=== PATIENT | male | born 1970 | race Caucasian/White ===

== ENCOUNTER 2023-05-05 08:44 | Emergency (ER) | payer OTHER, SELFPAY ==
[2023-05-05] VITALS (14 sets, daily range): BP systolic 101–129; BP diastolic 58–80; PULSE 74–103; RESP 13–20; TEMP 37.2; O2SAT 96–100; BMI 27.7
--- NOTE | 2023-05-05 09:26 | ED.WEAKNESS ---
HPI - Weakness General Chief complaint: Weakness Stated complaint: low energy, dehydration per pt Time Seen by Provider: 05/05/23 09:19 Source: patient Mode of arrival: Ambulatory History of Present Illness HPI Narrative: Patient states he was in his usual state of health until 2 weeks ago. He was on a golf trip to [place]. While there he tested positive for influenza A. He had fever and chills. Since then he has had a dry cough. In addition he feels he does not have the same vigor and energy as he usually does. His urine output has changed. Does not feel like a very forceful stream but denies any dysuria. He has been able to eat and drink. Has dyspnea but no chest pain. No abdominal pain. No altered mental status. Denies any history of heart attack strokes or diabetes. No thyroid disease. Denies any prostate problems. Review of Systems Review of Systems Narrative: GENERAL: Positive chills, fatigue, malaise, fever, negative sweats. HEENT: negative sinus pain, ear pain, sore throat RESPIRATORY: Positive dyspnea, positive cough CARDIOVASCULAR: negative chest pain, palpitations GASTROINTESTINAL: negative nausea, vomiting, abdominal pain : negative dysuria, frequency, hematuria MUSCULOSKELETAL: negative muscle or bony pain SKIN: negative rash, skin lesions NEUROLOGIC: negative weakness, numbness ROS Unobtainable: All systems reviewed & are unremarkable except as noted in HPI and below Patient History alcohol intake frequency: other Substance Use Type: does not use Exam Narrative Exam Narrative: GENERAL: in no distress, not toxic not dyspneic HEAD: Normocephalic. EYES: Pupils equal round ENT: Mucous membranes moist. NECK: Trachea midline. CARDIOVASCULAR: Regular rate and rhythm RESPIRATORY: Clear to auscultation. Breath sounds equal bilaterally. No wheezes, rales, or rhonchi. Speaking full sentences GASTROINTESTINAL: Abdomen soft, non-tender EXTREMITIES: No gross deformities. BACK: No flank tenderness. NEURO: AOx4. SKIN: Warm and dry PSYCH: Not anxious, is cooperative Initial Vital Signs Initial Vital Signs: Vital Signs Temperature 98.9 F 05/05/23 09:05 Pulse Rate 103 H 05/05/23 09:05 Respiratory Rate 18 05/05/23 09:05 Blood Pressure 116/73 05/05/23 09:05 Pulse Oximetry 99 05/05/23 09:05 Oxygen Delivery Method Room Air 05/05/23 09:05 Course Orders Ordered: Discontinued Medications Sodium Chloride (Normal Saline 0.9%) 1,000 mls @ 1,000 mls/hr IV BOLUS ONE Stop: 05/05/23 10:23 Last Infusion: 05/05/23 12:20 Dose: Infused Documented By: Admin: 05/05/23 09:45 Dose: 1,000 mls/hr Documented By: CARRI Vital Signs Vital signs: Vital Signs - 8 hr 05/05/23 09:05 05/05/23 09:30 05/05/23 10:07 Temperature 98.9 F Pulse Rate 103 H 103 H 77 Respiratory Rate 18 18 20 Blood Pressure 116/73 120/66 Pulse Oximetry 99 99 99 Oxygen Delivery Method Room Air Room Air 05/05/23 10:08 05/05/23 10:09 05/05/23 10:09 Temperature Pulse Rate 100 H 77 Respiratory Rate 18 16 Blood Pressure 122/58 L 110/60 Pulse Oximetry 99 99 Oxygen Delivery Method Room Air 05/05/23 10:15 05/05/23 10:30 05/05/23 10:30 Temperature Pulse Rate 77 80 Respiratory Rate 15 15 Blood Pressure 114/58 L Pulse Oximetry 99 98 Oxygen Delivery Method 05/05/23 10:45 05/05/23 11:00 05/05/23 11:00 Temperature Pulse Rate 74 74 Respiratory Rate 15 14 Blood Pressure 101/59 L Pulse Oximetry 99 99 Oxygen Delivery Method 05/05/23 11:15 05/05/23 11:30 05/05/23 11:30 Temperature Pulse Rate 76 81 Respiratory Rate 17 13 Blood Pressure 129/79 Pulse Oximetry 100 97 Oxygen Delivery Method 05/05/23 11:51 05/05/23 11:52 05/05/23 11:52 Temperature Pulse Rate 83 77 Respiratory Rate 19 Blood Pressure 113/80 Pulse Oximetry 100 96 Oxygen Delivery Method 05/05/23 12:00 05/05/23 12:00 Temperature Pulse Rate 77 Respiratory Rate 14 Blood Pressure 110/68 Pulse Oximetry 100 Oxygen Delivery Method MDM - Weakness Lab Data 05/05/23 09:56 05/05/23 09:56 Labs: Lab Results 05/05/23 05/05/23 05/05/23 Range/Units 09:15 09:56 09:56 WBC 9.1 (4.5-11.0) X10^3/uL RBC 4.67 (4.5-5.9) X10^6/uL Hgb 14.3 (13.5-17.5) g/dL Hct 41.6 (41-53) % MCV 89.1 (80-100) fL MCH 30.6 (26-34) PG MCHC 34.3 (30-36) % RDW 12.4 (11.6-14.8) % Plt Count 704 H (150-400) X10^3/uL Neut % (Auto) 73.9 (50-75) % Lymph % (Auto) 13.5 L (25-40) % [place] % (Auto) 10.4 (3-14) % Eos % (Auto) 1.2 L (2-4) % Baso % (Auto) 1.0 (0-2) % Neut # (Auto) 6800 (6949-7229) /uL Lymph # (Auto) 1200 (4733-6478) /uL [place] # (Auto) 1000 H (0-900) /uL Eos # (Auto) 100 (0-450) /uL Baso # (Auto) 100 (0-100) /uL Sodium 135 L (137-145) mmol/L Potassium 4.8 (3.4-5.1) mmol/L Chloride 105 (98-107) mmol/L Carbon Dioxide 26 (22-32) mmol/L BUN 19 (9-20) mg/dL Creatinine 0.82 (0.66-1.25) mg/dL Estimated GFR > 60 (>60) mL/min BUN/Creatinine Ratio 23.2 H (6-22) Glucose 102 H (70-100) mg/dL Calcium 9.4 (8.4-10.2) mg/dL Magnesium 2.6 H (1.6-2.3) mg/dL Total Bilirubin 0.6 (0.2-1.3) mg/dL AST 126 H (17-59) IU/L ALT 200 H (<50) IU/L Alkaline Phosphatase 130 H (38-126) U/L Total Creatine Kinase 34 L 33 L (55-170) U/L Troponin I < 0.012 (0.01-0.034) ng/mL Total Protein 7.7 (6.3-8.2) g/dL Albumin 4.3 (3.5-5.0) g/dL Globulin 3.4 (1.7-4.1) g/dL Albumin/Globulin Ratio 1.3 (1.0-2.8) TSH 0.911 (0.47-4.68) uIU/mL Urine Color Yellow Urine Appearance Clear Urine pH 6.5 (4.5-8.0) Ur Specific Parachute 1.010 (1.000-1.035) Urine Protein Negative (Negative) Urine Glucose (UA) Negative (Negative) g/dL Urine Ketones Negative (NEGATIVE) Urine Occult Blood Negative (Negative) Urine Nitrate Negative (Negative) Urine Bilirubin Negative (NEGATIVE) Urine Urobilinogen 0.2 (0.2) E.U./dL Ur Leukocyte Esterase Negative (NEGATIVE) Urine RBC None seen (0-5/HPF) Urine WBC None seen (0-5/HPF) Ur Squamous Epith Cells None seen (0-5/HPF) Urine Bacteria None seen (None) Ur Culture Indicated? Cult not indicated Vol Urine Centrifuged 10ml (spun) Chlamy pneumoniae PCR Not detected (Not Detect) Adenovirus (PCR) Not detected (Not Detect) B.parapertussis DNA PCR Not detected (Not Detecte) Coronavirus OC43 (PCR) Not detected (Not Detect) Coronavirus HKU1 (PCR) Not detected (Not Detect) Coronavirus 229E (PCR) Not detected (Not Detect) SARS-CoV-2 (PCR) Not detected (Not Detecte) Coronavirus NL63 (PCR) Not detected (Not Detect) Human Metapneumovir PCR Not detected (Not Detect) Influ A (H1N1 Seas) PCR Detected H (Not Detect) Influenza Type B (PCR) Not detected (Not Detect) M. pneumoniae (PCR) Not detected (Not Detect) Parainfluenza 1 (PCR) Not detected (Not Detect) Parainfluenza 2 (PCR) Not detected (Not Detect) Parainfluenza 3 (PCR) Not detected (Not Detect) Parainfluenza 4 (PCR) Not detected (Not Detect) RSV (PCR) Not detected (Not Detect) Entero/Rhino (PCR) Not detected (Not Detect) Imaging Data CT scan - chest: Radiologist Impression: [address] [address] [address] Scan Report Signed Patient: Christopher Retana MR#: [id number] : 1970 Acct:[id number] Age/Sex: 52 / M Date of Service: 05/05/23 Loc: ED Accession Number: [id number] Procedure: CT angio chest PE protocol Ordering Provider: Tatum Beckett MD PROCEDURE: CT ANGIO CHEST PE PROTOCOL INDICATIONS: Dyspnea TECHNIQUE: After the administration of intravenous contrast, 2 mm thick sections acquired from the pulmonary apices to the posterior costophrenic angles. 3-dimensional maximum intensity projection (MIP) coronal and sagittal reformats were then acquired through the thorax. For radiation dose reduction, the following was used: automated exposure control, adjustment of mA and/or kV according to patient size. COMPARISON: None. FINDINGS: Image quality: Diagnostic. Pulmonary arteries: Pulmonary arteries are normal in size, and demonstrate no intraluminal filling defects to suggest central pulmonary embolism. Lower Neck: No enlarged lymph nodes. Thyroid: No thyroid nodules which require sonographic follow up, per consensus guidelines. Axillae: No enlarged lymph nodes. Chest Wall: Unremarkable. Bones: Unremarkable. Lungs and Pleura: No pneumothorax or pleural effusions. Mild bilateral lower lobe ground-glass density. Heart: Heart size is normal. No pericardial effusion. Thoracic Vessels: No aortic aneurysm. Mediastinum and Yady: No enlarged lymph nodes. Esophagus: No wall thickening. No hiatal hernia. Upper Abdomen: Visualized upper abdomen solid organs and bowel loops appear normal. IMPRESSION: 1. No pulmonary embolus. 2. Mild bilateral lower lobe pneumonia. Dictated by: Jesús Bingham M.D. on 05/05/2023 at 11:41 Approved by: Jesús Bingham M.D. on 05/05/2023 at 11:50 CT scan - abdomen/pelvis: Radiologist Impression: [place] [address] CT Scan Report Signed Patient: Christopher Retana MR#: [id number] : 1970 Acct:[id number] Age/Sex: 52 / M Date of Service: 05/05/23 Loc: ED Accession Number: [id number] Procedure: CT abdomen pelvis w con Ordering Provider: Tatum Beckett MD PROCEDURE: CT ABDOMEN PELVIS W CON INDICATIONS: IV contrast only/abdominal pain TECHNIQUE: After the administration of intravenous contrast, axial sections acquired from the lung bases to the pubic symphysis. Coronal and sagittal reformats were performed. For radiation dose reduction, the following was used: automated exposure control, adjustment of mA and/or kV according to patient size. COMPARISON: None. FINDINGS: Image quality: Diagnostic. Lower Chest: No significant findings. ABDOMEN: Liver: No solid mass. Gallbladder: No radiopaque gallstones or wall thickening. Biliary ducts: No biliary dilation. Pancreas: No ductal dilation. Spleen: Size is within normal limits. Adrenal Glands: No adrenal nodules. Kidneys and Ureters: No hydronephrosis. No solid mass. No complex renal cystic lesion which requires follow up. Stomach and Bowel: Normal colonic caliber, without significant wall thickening. Appendix not seen. No evidence of appendicitis. Peritoneum: No abnormal intraperitoneal fluid. No free air. Ventral Wall: No significant ventral hernia. Abdominal Nodes: No retroperitoneal or mesenteric adenopathy by size criteria. Vessels: Aorta and inferior vena cava are normal in size. PELVIS: Pelvic Organs: Unremarkable. Bladder: No bladder wall thickening, accounting for underdistention. Pelvic Nodes: No enlarged lymph nodes. Miscellaneous: Fat containing right inguinal hernia. Bones: No aggressive osseous abnormality. IMPRESSION: 1. No acute process. 2. Appendix not seen. No evidence of appendicitis. Dictated by: Jesús Bingham M.D. on 05/05/2023 at 11:52 Approved by: Jesús Bingham M.D. on 05/05/2023 at 11:54 Echocardiogram: Radiologist Impression: [address] [address] Echocardiography Report Signed Patient: Christopher Retana MR#: [id number] : 1970 Acct:[id number] Age/Sex: 52 / M Date of Service: 05/05/23 Loc: ED Accession Number: [id number] Procedure: EC echo doppler complete Ordering Provider: Tatum Beckett MD [place] +---------+ [facility] +---------+ : : [address] [place] [address] : : : : [place], [place] : : : : [id number] : : : : Phone: [phone]+ Echocardiogram Report + + :Name: CHRISTOPHER RETANA Study Date: 05/05/2023 Height: 73 in : :[facility] ReadingLocation: Weight: 210 lb : : Gender: Male BSA: 2.2 m2 : :: 1970 Age: 52 yrs BP: 114/58 mmHg: :Reason For Study: DYSPNEA : :Ordering Physician: SUJIT, : :TATUM Performed By: Amelia Muñoz : :Referring: TATUM BECKETT : + + Interpretation Summary The ejection fraction is estimated to be 60-65%. Diastolic parameters suggest probable normal left ventricular diastolic function and normal filling pressures. The right ventricle is normal in size and function. Pulmonary artery pressures cannot be estimated because of the lack of a measurable TR jet velocity but the IVC suggests a CVP of around 3 mmHg. Procedure: A two-dimensional transthoracic echocardiogram with color flow and Doppler was performed. The study quality was technically adequate. There is no prior echocardiogram noted for this patient. The patient was in sinus rhythm with heart rates between 69-72 bpm during the exam. Left Ventricle: The left ventricle is normal in size and wall thickness. The ejection fraction is estimated to be 60-65%. Diastolic parameters suggest probable normal left ventricular diastolic function and normal filling pressures. Right Ventricle: The right ventricle is normal in size and function. Atria: The left atrial size is normal. Right atrial size is normal. There is no Doppler evidence for an interatrial shunt. Mitral Valve: The mitral valve is normal. There is trace mitral regurgitation. Aortic Valve: The aortic valve is trileaflet. The aortic valve opens well. There is no aortic valve stenosis. No aortic regurgitation is present. Tricuspid Valve: The tricuspid valve is normal in structure and function. There is a trace or physiologic amount of tricuspid regurgitation. Pulmonary artery pressures cannot be estimated because of the lack of a measurable TR jet velocity but the IVC suggests a CVP of around 3 mmHg. Pulmonic Valve: The pulmonic valve leaflets are thin and pliable; valve motion is normal. There is no pulmonic valvular regurgitation. Great Vessels: The aortic root is normal size. The dimensions of the ascending aorta are normal. The IVC is of normal diameter and collapses greater than 50% with a sniff. This suggests a low right atrial pressure of 3 mm Hg. Pericardium/ Pleura There is no pericardial effusion. There is no pleural effusion. MMode/2D Measurements & Calculations LVIDd: 5.1 cm LVOT diam: 2.0 cm LVIDs: 3.6 cm Ao root diam: 3.0 cm FS: 30.0 % asc Aorta Diam: 3.0 cm EPSS: 0.51 cm Ao Arch Diam (Prox Trans): 2.7 cm IVSd: 0.77 cm LVPWd: 0.67 cm LV gomes. diameter/BSA (cm/m^2): 2.3 LV sys. diameter/BSA (cm/m^2): 1.6 LA A2 area: 17.2 cm2 RA long axis: 4.6 cm LA A4 area: 14.2 cm2 RA area: 12.9 cm2 LA length (vol): 4.5 cm RA vol: 30.3 ml LA vol: 46.0 ml RA : 13.8 ml/m2 LA vol index: 20.9 ml/m2 IVC diam: 1.8 cm RVD1 (basal): 4.0 cm TAPSE: 1.7 cm Doppler Measurements & Calculations Ao V2 max: 149.6 cm/sec LVOT Max Chidi: 85.7 cm/sec Ao V2 mean: 111.6 cm/sec LV V1 max P.9 mmHg Ao max P.0 mmHg LV V1 VTI: 17.4 cm Ao mean P.3 mmHg SARA(I,D): 1.8 cm2 Ao V2 VTI: 31.0 cm SARA(V,D): 1.8 cm2 sev ratio: 0.56 SARA indexed to BSA (cm^2/m^2): 0.80 MV E max chidi: 73.9 cm/sec TR max chidi: 211.1 cm/sec MV A max chidi: 44.3 cm/sec TR max P.8 mmHg MV E/A: 1.7 PA V2 max: 92.4 cm/sec Med Peak E' Chidi: 10.3 cm/sec PA V2 mean: 62.3 cm/sec E/E' med: 7.2 PA mean P.8 mmHg Lat Peak E' Chidi: 13.6 cm/sec PA pr(Accel): 24.2 mmHg E/E' lat: 5.4 E/e' average: 6.3 MV dec time: 0.17 sec SV(LVOT): 54.5 ml Reading Physician:11:[address] [facility] Narrative Medical decision making narrative: Patient states he was in his usual state of health until 2 weeks ago. He was on a golf trip to [place]. While there he tested positive for influenza A. He had fever and chills. Since then he has had a dry cough. In addition he feels he does not have the same vigor and energy as he usually does. His urine output has changed. Does not feel like a very forceful stream but denies any dysuria. He has been able to eat and drink. Has dyspnea but no chest pain. No abdominal pain. No altered mental status. Denies any history of heart attack strokes or diabetes. No thyroid disease. Denies any prostate problems. After history and exam echocardiogram CBC CMP EKG troponin urinalysis TSH magnesium, CT imaging pending results, normal saline MDM CC: Weakness Complicating co-morbidities: Recent influenza Data collected from: Patient Medical records reviewed: No recent visit here for this complaint Differential considered: Includes but not limited to viral syndrome sepsis hypothyroidism endocarditis pulmonary embolism pneumonia UTI Exam documented above, pertinent findings include: No abdominal pain, no respiratory distress Lab Test results independently reviewed as above. Pertinent findings: WBC 9.1 hemoglobin 14.3 sodium 135 potassium 4.8 BUN 19 creatinine 0.82 GFR greater than 60 AST 126 ALT 200 troponin less than 0.012 urinalysis negative leukocyte negative nitrate negative ketones Respiratory panel positive influenza a Independently reviewed EKG normal sinus rhythm normal EKG rate [address] elevation or depression Imaging studies independently reviewed: CT chest abdomen pelvis, no pulmonary embolism. There is bibasilar possible pneumonia. No acute finding in the abdomen. Echocardiogram no pleural effusion. No heart valve vegetations Consultations: None indicated this time Treatments: Normal saline Re-evaluations: 12:15 p.m.. Updated patient results. Patient not requiring supplemental oxygen. He states and does show paperwork from 2 visits to the clinic, Zithromax March, Augmentin started yesterday. Return precautions reviewed with him. Not toxic. He desires discharge home Discussion: Appropriate for discharge home. Patient is already antibiotics. Patient was given Zithromax 5 day pack March. He just saw a clinic again yesterday and started Augmentin. Exam and laboratory studies imaging studies otherwise reassuring. Return precautions reviewed with patient. He desires discharge home. Urinary complaints nonspecific. However urology referral has been provided. Diagnosis: Pneumonia Discharge Plan Departure Patient Disposition: Home Clinical Impression: Pneumonia Qualifiers: Pneumonia type: due to unspecified organism Laterality: bilateral Lung location: lower lobe of lung Qualified Code(s): J18.9 - Pneumonia, unspecified organism Instructions: DI for Atypical Pneumonia Activity Restrictions/Additional Instructions: Please see your family doctor within a week for re-evaluation. Call provided primary care referral phone number to establish family doctor. Call [phone]. Please do continue your Augmentin antibiotics to treat for your pneumonia. Keep well hydrated. Your laboratory studies imaging and echocardiogram and EKG are otherwise reassuring today. Please do get plenty of rest. Return if worse if any questions or concerns. No new prescriptions are indicated. Please call provided urology office regarding your urinary changes. Referrals: Yamel Mi ARNP [Primary Care Provider] - Sourav Loving MD [Physician] - Stand Alone Forms: Patient Portal/API
--- NOTE | 2023-05-05 09:31 | DI.ECHO.S_ITS ---
[facility]---------+ [facility] +---------+ : : [address] : : : : [id number] : : : : Phone: [phone] : : [phone]+ Echocardiogram Report + + :Name: REGGIE RETANA Study Date: 05/05/2023 Height: 73 in : :[facility] ReadingLocation: Weight: 210 lb : : Gender: Male BSA: 2.2 m2 : :: 1970 Age: 52 yrs BP: 114/58 mmHg: :Reason For Study: DYSPNEA : :Ordering Physician: SUJIT, : :TATUM Performed By: Amelia Muñoz : :Referring: TATUM BECKETT : + + Interpretation Summary The ejection fraction is estimated to be 60-65%. Diastolic parameters suggest probable normal left ventricular diastolic function and normal filling pressures. The right ventricle is normal in size and function. Pulmonary artery pressures cannot be estimated because of the lack of a measurable TR jet velocity but the IVC suggests a CVP of around 3 mmHg. Procedure: A two-dimensional transthoracic echocardiogram with color flow and Doppler was performed. The study quality was technically adequate. There is no prior echocardiogram noted for this patient. The patient was in sinus rhythm with heart rates between 69-72 bpm during the exam. Left Ventricle: The left ventricle is normal in size and wall thickness. The ejection fraction is estimated to be 60-65%. Diastolic parameters suggest probable normal left ventricular diastolic function and normal filling pressures. Right Ventricle: The right ventricle is normal in size and function. Atria: The left atrial size is normal. Right atrial size is normal. There is no Doppler evidence for an interatrial shunt. Mitral Valve: The mitral valve is normal. There is trace mitral regurgitation. Aortic Valve: The aortic valve is trileaflet. The aortic valve opens well. There is no aortic valve stenosis. No aortic regurgitation is present. Tricuspid Valve: The tricuspid valve is normal in structure and function. There is a trace or physiologic amount of tricuspid regurgitation. Pulmonary artery pressures cannot be estimated because of the lack of a measurable TR jet velocity but the IVC suggests a CVP of around 3 mmHg. Pulmonic Valve: The pulmonic valve leaflets are thin and pliable; valve motion is normal. There is no pulmonic valvular regurgitation. Great Vessels: The aortic root is normal size. The dimensions of the ascending aorta are normal. The IVC is of normal diameter and collapses greater than 50% with a sniff. This suggests a low right atrial pressure of 3 mm Hg. Pericardium/ Pleura There is no pericardial effusion. There is no pleural effusion. MMode/2D Measurements & Calculations LVIDd: 5.1 cm LVOT diam: 2.0 cm LVIDs: 3.6 cm Ao root diam: 3.0 cm FS: 30.0 % asc Aorta Diam: 3.0 cm EPSS: 0.51 cm Ao Arch Diam (Prox Trans): 2.7 cm IVSd: 0.77 cm LVPWd: 0.67 cm LV gomes. diameter/BSA (cm/m^2): 2.3 LV sys. diameter/BSA (cm/m^2): 1.6 LA A2 area: 17.2 cm2 RA long axis: 4.6 cm LA A4 area: 14.2 cm2 RA area: 12.9 cm2 LA length (vol): 4.5 cm RA vol: 30.3 ml LA vol: 46.0 ml RA : 13.8 ml/m2 LA vol index: 20.9 ml/m2 IVC diam: 1.8 cm RVD1 (basal): 4.0 cm TAPSE: 1.7 cm Doppler Measurements & Calculations Ao V2 max: 149.6 cm/sec LVOT Max Chidi: 85.7 cm/sec Ao V2 mean: 111.6 cm/sec LV V1 max P.9 mmHg Ao max P.0 mmHg LV V1 VTI: 17.4 cm Ao mean P.3 mmHg SARA(I,D): 1.8 cm2 Ao V2 VTI: 31.0 cm SARA(V,D): 1.8 cm2 sev ratio: 0.56 SARA indexed to BSA (cm^2/m^2): 0.80 MV E max chidi: 73.9 cm/sec TR max chidi: 211.1 cm/sec MV A max chidi: 44.3 cm/sec TR max P.8 mmHg MV E/A: 1.7 PA V2 max: 92.4 cm/sec Med Peak E' Chidi: 10.3 cm/sec PA V2 mean: 62.3 cm/sec E/E' med: 7.2 PA mean P.8 mmHg Lat Peak E' Chidi: 13.6 cm/sec PA pr(Accel): 24.2 mmHg E/E' lat: 5.4 E/e' average: 6.3 MV dec time: 0.17 sec SVLVOT): 54.5 ml Reading Physician:11:45 AM
[2023-05-05] MEDS: SODIUM CHLORIDE 0.9% 1,000 ML 1000 ML IV (09:45)
[2023-05-05 10:03] LABS: Appearance Urine UA CLEAR; Bilirubin Urine UA NEGATIVE (NEGATIVE); Color Urine UA YELLOW; Glucose Urine UA NEGATIVE (Negative); Ketones Urine UA NEGATIVE (NEGATIVE); Leukocyte Esterase Urine UA NEGATIVE (NEGATIVE); Nitrite Urine UA NEGATIVE (Negative); Occult Blood Urine UA NEGATIVE (Negative); Protein Urine UA NEGATIVE (Negative); Urobilinogen Urine UA 0.2 E.U./dL (0.2); pH Urine UA 6.5 (4.5-8.0)
[2023-05-05 10:05] LABS: Add Manual Diff / Slide Review NO; Basophils Absolute Auto 100 /uL (0-100); Eosinophils Absolute Auto 100 /uL (0-450); Eosinophils Percent Auto 1.2 % (2-4); Hematocrit 41.6 % (41-53); Hemoglobin 14.3 g/dL (13.5-17.5); Lymphocytes Absolute Auto 1200 /uL (1100-4500); Lymphocytes Percent Auto 13.5 % (25-40); Mean Corpuscular HGB Conc 34.3 % (30-36); Mean Corpuscular Hemoglobin 30.6 PG (26-34); Mean Corpuscular Volume 89.1 fL (80-100); Monocytes Absolute Auto 1000 /uL (0-900); Monocytes Percent Auto 10.4 % (3-14); Neutrophils Absolute Auto 6800 /uL (1500-7000); Neutrophils Percent Auto 73.9 % (50-75); Platelet Count 704 X10^3/uL (150-400); Red Blood Cell Count 4.67 X10^6/uL (4.5-5.9); Red Cell Distribution Width 12.4 % (11.6-14.8); White Blood Cell Count 9.1 X10^3/uL (4.5-11.0)
[2023-05-05 10:11] LABS: Bacteria Urine None Seen; Culture Indicated Urine Cult Not Indicated; RBC Urine None Seen (0-5/HPF); Squamous Epithelial Cell Urine None Seen (0-5/HPF); Urine Volume 10mL (spun); WBC Urine None Seen (0-5/HPF)
[2023-05-05 10:20] LABS: Creatine Kinase 33 U/L (55-170)
[2023-05-05 10:21] LABS: Alanine Aminotransferase 200 IU/L (<50); Albumin 4.3 g/dL (3.5-5.0); Albumin Globulin Ratio 1.3 (1.0-2.8); Alkaline Phosphatase 130 U/L (38-126); Aspartate Aminotransferase 126 IU/L (17-59); BUN Creatinine Ratio 23.2 (6-22); Bilirubin Total 0.6 mg/dL (0.2-1.3); Blood Urea Nitrogen 19 mg/dL (9-20); Calcium 9.4 mg/dL (8.4-10.2); Carbon Dioxide 26 mmol/L (22-32); Chloride 105 mmol/L (98-107); Creatine Kinase 34 U/L (55-170); Estimated Glomerular Filt Rate > 60 mL/min (>60); Globulin 3.4 g/dL (1.7-4.1); Glucose 102 mg/dL (70-100); HEMOLYSIS < 15 (0-50); Magnesium 2.6 mg/dL (1.6-2.3); Potassium 4.8 mmol/L (3.4-5.1); Sodium 135 mmol/L (137-145); Total Protein 7.7 g/dL (6.3-8.2)
[2023-05-05 10:32] LABS: Troponin I < 0.012 ng/mL (0.01-0.034)
[2023-05-05 10:51] LABS: Thyroid Stimulating Hormone 0.911 uIU/mL (0.47-4.68)
[2023-05-05 10:57] LABS: Adenovirus Not Detected (Not Detect); B. parapertussis Not Detected (Not Detecte); Bordetella pertussis Not Detected (Not Detect); Chlamydophila pneumoniae Not Detected (Not Detect); Coronavirus 229E Not Detected (Not Detect); Coronavirus HKU1 Not Detected (Not Detect); Coronavirus NL 63 Not Detected (Not Detect); Coronavirus OC43 Not Detected (Not Detect); Human Metapneumovirus Not Detected (Not Detect); Human Rhinovirus/Enterovirus Not Detected (Not Detect); Influenza A H1-2009 Detected (Not Detect); Influenza B Not Detected (Not Detect); Mycoplasma pneumoniae Not Detected (Not Detect); Parainfluenza Virus 1 Not Detected (Not Detect); Parainfluenza Virus 2 Not Detected (Not Detect); Parainfluenza Virus 3 Not Detected (Not Detect); Parainfluenza Virus 4 Not Detected (Not Detect); Respiratory Syncytial Virus Not Detected (Not Detect); SARS- CoV-2 Not Detected (Not Detecte)
--- NOTE | 2023-05-05 11:02 | DI.CT.S_ITS ---
PROCEDURE: CT ANGIO CHEST PE PROTOCOL INDICATIONS: Dyspnea TECHNIQUE: After the administration of intravenous contrast, 2 mm thick sections acquired from the pulmonary apices to the posterior costophrenic angles. 3-dimensional maximum intensity projection (MIP) coronal and sagittal reformats were then acquired through the thorax. For radiation dose reduction, the following was used: automated exposure control, adjustment of mA and/or kV according to patient size. COMPARISON: None. FINDINGS: Image quality: Diagnostic. Pulmonary arteries: Pulmonary arteries are normal in size, and demonstrate no intraluminal filling defects to suggest central pulmonary embolism. Lower Neck: No enlarged lymph nodes. Thyroid: No thyroid nodules which require sonographic follow up, per consensus guidelines. Axillae: No enlarged lymph nodes. Chest Wall: Unremarkable. Bones: Unremarkable. Lungs and Pleura: No pneumothorax or pleural effusions. Mild bilateral lower lobe ground-glass density. Heart: Heart size is normal. No pericardial effusion. Thoracic Vessels: No aortic aneurysm. Mediastinum and Yady: No enlarged lymph nodes. Esophagus: No wall thickening. No hiatal hernia. Upper Abdomen: Visualized upper abdomen solid organs and bowel loops appear normal. IMPRESSION: 1. No pulmonary embolus. 2. Mild bilateral lower lobe pneumonia. Dictated by: Jesús Bingham M.D. on 05/05/2023 at 11:41 Approved by: Jesús Bingham M.D. on 05/05/2023 at 11:50
--- NOTE | 2023-05-05 11:02 | DI.CT.S_ITS ---
PROCEDURE: CT ABDOMEN PELVIS W CON INDICATIONS: IV contrast only/abdominal pain TECHNIQUE: After the administration of intravenous contrast, axial sections acquired from the lung bases to the pubic symphysis. Coronal and sagittal reformats were performed. For radiation dose reduction, the following was used: automated exposure control, adjustment of mA and/or kV according to patient size. COMPARISON: None. FINDINGS: Image quality: Diagnostic. Lower Chest: No significant findings. ABDOMEN: Liver: No solid mass. Gallbladder: No radiopaque gallstones or wall thickening. Biliary ducts: No biliary dilation. Pancreas: No ductal dilation. Spleen: Size is within normal limits. Adrenal Glands: No adrenal nodules. Kidneys and Ureters: No hydronephrosis. No solid mass. No complex renal cystic lesion which requires follow up. Stomach and Bowel: Normal colonic caliber, without significant wall thickening. Appendix not seen. No evidence of appendicitis. Peritoneum: No abnormal intraperitoneal fluid. No free air. Ventral Wall: No significant ventral hernia. Abdominal Nodes: No retroperitoneal or mesenteric adenopathy by size criteria. Vessels: Aorta and inferior vena cava are normal in size. PELVIS: Pelvic Organs: Unremarkable. Bladder: No bladder wall thickening, accounting for underdistention. Pelvic Nodes: No enlarged lymph nodes. Miscellaneous: Fat containing right inguinal hernia. Bones: No aggressive osseous abnormality. IMPRESSION: 1. No acute process. 2. Appendix not seen. No evidence of appendicitis. Dictated by: Jesús Bingham M.D. on 05/05/2023 at 11:52 Approved by: Jesús Bingham M.D. on 05/05/2023 at 11:54
== END 2023-05-05 12:20 | disposition home or self-care (01) ==
PROVIDERS: Emergency Provider Emergency Medicine; PCP Nurse Practitioner
DX: J18.9 Pneumonia, unspecified organism (principal); J10.1 Influenza due to other identified influenza virus with other respiratory manifestations; R10.9 Unspecified abdominal pain; E86.0 Dehydration; R06.00 Dyspnea, unspecified; Z20.822 Contact with and (suspected) exposure to COVID-19
CPT/HCPCS: 51798; 71275; 74177; 80053; 81001; 82550; 83735; 84443; 84484; 85025; 87633; 93005; 93010; 93306; 96360; 96361; 99284; Q9967